=== PATIENT | male | born 2005 | race Caucasian/White ===

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

== ENCOUNTER 2024-05-12 21:40 | Emergency (ER) | payer SELFPAY ==
[2024-05-12 21:42] VITALS: BP 114/85; PULSE 76; RESP 18; TEMP 36.6; O2SAT 99; BMI 47.5
--- NOTE | 2024-05-12 22:27 | ED_ITS ---
Discharge Plan Disposition Patient Disposition: Home, Self-Care Condition: Good Prescriptions Prescriptions: New cephalexin 500 mg capsule 500 mg PO TID 10 Days Qty: 30 0RF sulfamethoxazole-trimethoprim [Bactrim DS] 800-160 mg tablet 1 tab PO BID 14 Days Qty: 28 0RF Referrals Follow up/Referrals: Provider,Referral, [Primary Care Provider] - See instructions Activity Restrictions/Add. Instructions Additional Instructions/Restrictions: You were evaluated in the emergency department today. Please last picker your prescription for antibiotics at the pharmacy and take the full course as prescribed. Follow-up closely with your primary care provider for wound recheck. Return to the emergency department for new or worsening symptoms. Clinical Impressions Clinical Impression: Abdominal wall abrasion, Abdominal wall cellulitis Instructions Patient Instructions: Cellulitis Print Language Print Language: Macedonian Discharge ED Provider: Belkys Case General Adult HPI <Doretha Jaramillo (ED), CASE MANAGEMENT SPECIALIST - Last Filed: 05/12/24 23:10> General Chief complaint: Skin/Abscess/Foreign Body Stated complaint: AO 05/08/24, lac on stomach Time Seen by Provider: 05/12/24 22:22 History of Present Illness HPI narrative: This is a 19-year-old male who presents to the ED today for complaint of getting hit in the right side of his abdomen on Tuesday with a external grinder at work. He did not want to come be evaluated for his injury at the time because he is afraid of IVs. His girlfriend made him come today because it is red around the laceration. He has no fevers or chills. No other symptoms at this time. Related Data Previous Rx's ?Medication ?Instructions ?Recorded cephalexin 500 mg capsule 500 mg PO TID 10 days #30 caps 05/12/24 sulfamethoxazole 800 1 tab PO BID 14 days #28 tabs 05/12/24 mg-trimethoprim 160 mg tablet (Bactrim DS) Allergies Allergy/AdvReac Type Severity Reaction Status Date / Time No Known Allergies Allergy Verified 04/14/22 10:30 PFS <Doretha Jaramillo (ED), CASE MANAGEMENT SPECIALIST - Last Filed: 05/12/24 23:10> PFS Disclaimer: The information contained in this section may have been updated after the patient was seen, as this information can be updated by other users. Social History (Updated 04/19/22 @ 20:59 by Renetta Mcintyre CASE MANAGEMENT SPECIALIST) Smoking Status: Never smoker alcohol intake: never current occupational status: student Travel in the last 8 weeks: None <Doretha Jaramillo (ED), CASE MANAGEMENT SPECIALIST - Last Filed: 05/12/24 23:10> ROS Obtained: Yes Systems reviewed as appropriate & no additional complaints except as documented Physical Exam <Doretha Jaramillo (ED), CASE MANAGEMENT SPECIALIST - Last Filed: 05/12/24 23:10> General General appearance: alert and in no apparent distress Head Head exam: atraumatic and normocephalic Eye Eye exam: Present normal appearance, PERRL and EOMI ENT ENT exam: Present normal exam, normal oropharynx and mucous membranes moist Neck Neck exam: Present normal inspection, full ROM and trachea midline Respiratory Respiratory exam: Present normal lung sounds bilaterally Cardiovascular Cardiovascular exam: Present regular rate, normal rhythm, normal heart sounds, +S1 and +S2 Abdominal Exam Abdominal exam: Present soft, tenderness (Over the right lower abdomen secondary to wound) and normal bowel sounds Extremities Exam Extremities exam: Present normal inspection, full ROM and normal capillary refill Neurological Exam Neurological exam: Present alert, oriented X3 and normal gait Skin Skin exam: Present warm, erythema and other (cellulitis apparent over right side of abdomen, approx 4x2) Medical Decision Making <Doretha Jaramillo (ED), CASE MANAGEMENT SPECIALIST - Last Filed: 05/12/24 23:10> Medical Records Screening: Per USPSTF and CDC recommendations, given the prevalence of disease in our region, it is our hospital?s policy to screen for HIV and viral Hepatitis for all patients aged 18 and over and those with ongoing risk factors. Jarrod Inquiry Pt receiving controlled substance: No Vital Signs: 05/12/24 21:42 05/12/24 23:43 Temperature 97.8 F 98.2 F Temperature Source Oral Oral Pulse Rate 73 Pulse Rate [Left Radial] 76 Respiratory Rate 18 18 Blood Pressure 112/79 Blood Pressure [Right Arm] 114/85 Blood Pressure Mean [Right Arm] 94 Blood Pressure Source Automatic Cuff Blood Pressure Source [Right Arm] Automatic Cuff Blood Pressure Position Sitting Blood Pressure Position [Right Arm] Sitting 02 Sat by Pulse Oximetry 99 Oxygen Delivery Method Room Air Room Air Orders (Tests/Meds): ED MEDICATIONS Discontinued Medications Generic Name Dose Route Start Last Admin Trade Name Freq PRN Reason Stop Dose Admin Tetanus/Reduced Diphtheria/Acell Pertussis 0.5 ml 05/12/24 22:31 05/12/24 22:37 Tet/Diphth/Pert-Adult 0.5ml Syringe IM 05/12/24 22:32 0.5 ml .ONCE ONE Administration Trimethoprim/Sulfamethoxazole 1 each 05/12/24 22:32 05/12/24 22:38 Sulfa/Trimethoprim 1 Tablet PO 05/12/24 22:33 1 each ONCE ONE Administration <Belkys Case DO - Last Filed: 05/12/24 23:50> Vital Signs: 05/12/24 21:42 05/12/24 23:43 Temperature 97.8 F 98.2 F Temperature Source Oral Oral Pulse Rate 73 Pulse Rate [Left Radial] 76 Respiratory Rate 18 18 Blood Pressure 112/79 Blood Pressure [Right Arm] 114/85 Blood Pressure Mean [Right Arm] 94 Blood Pressure Source Automatic Cuff Blood Pressure Source [Right Arm] Automatic Cuff Blood Pressure Position Sitting Blood Pressure Position [Right Arm] Sitting 02 Sat by Pulse Oximetry 99 Oxygen Delivery Method Room Air Room Air Orders (Tests/Meds): ED MEDICATIONS Discontinued Medications Generic Name Dose Route Start Last Admin Trade Name Freq PRN Reason Stop Dose Admin Tetanus/Reduced Diphtheria/Acell Pertussis 0.5 ml 05/12/24 22:31 05/12/24 2 2:37 Tet/Diphth/Pert-Adult 0.5ml Syringe IM 05/12/24 22:32 0.5 ml .ONCE ONE Administration Trimethoprim/Sulfamethoxazole 1 each 05/12/24 22:32 05/12/24 22:38 Sulfa/Trimethoprim 1 Tablet PO 05/12/24 22:33 1 each ONCE ONE Administration Medical Decision Narrative: I was consulted by the RAMON, and we discussed the complexity of the problems being addressed. I approved the treatment and management plan for this patient's care in the emergency department, thus performing a substantive portion of the medical decision making. DO Manpreet Starr DO: in summary, this patient is a 19-year-old male presenting to the Emergency Department for evaluation of abdominal wall wound with concern for possible infection. Differential diagnoses considered include but are not limited to cellulitis, abscess, laceration, abrasion. Ruling out the most morbid conditions drove assessment. On exam, the patient is well-appearing. He has reassuring vital signs on cardiac telemetry. Exam is consistent with cellulitis but do not note any appreciable fluctuance concerning for abscess. Wound is already starting to granulate at this time, send no indication for repair. Ultimately given reassuring exam, I feel he is appropriate for discharge home with antibiotics to treat cellulitis. He was given strict return precautions and instructions for close follow-up. Critical Care <Doretha Jaramillo (ED), CASE MANAGEMENT SPECIALIST - Last Filed: 05/12/24 23:10> Critical Care Time Critical Care Time: No
[2024-05-12] MEDS: TET/DIPHTH/PERT-ADULT 0.5ML SYRINGE 0.5 ML IM (22:37)
[2024-05-12] MEDS: SULFA/TRIMETHOPRIM 1 TABLET 1 EACH PO (22:38)
[2024-05-12 23:43] VITALS: BP 112/79; PULSE 73; RESP 18; TEMP 36.8; O2SAT 100
== END 2024-05-12 23:45 | disposition home or self-care (01) ==
PROVIDERS: Emergency Provider Emergency Medicine
DX: L03.311 Cellulitis of abdominal wall (principal); S31.11 Laceration without foreign body of abdominal wall without penetration into peritoneal cavity; W29 Contact with other powered hand tools and household machinery; Y92.9 Unspecified place or not applicable; Z23 Encounter for immunization
CPT/HCPCS: 90471; 90715; 99283